=== PATIENT | female | born 1990 | race Two or more races ===

== ENCOUNTER 2020-06-02 16:30 | Day surgery (SDC) | payer MEDICAID ==
[~2020-06-02] VITALS: Ht 162.6 cm; Wt 73.0 kg
--- NOTE | 2020-06-02 18:07 | NUR ---
PT IN GOWN IN [facility]. PT EDUCATED ON ER PROCESS AND POC AND VERBALIZES UNDERSTANDING. CALL LIGHT IS WITHIN REACH AT THIS TIME. PT AMBULATES TO RESTROOM WITH STEADY GAIT TO VOID FOR UA. LAB AT BS TO DRAW PT BLOOD AT THIS TIME.
[2020-06-02 18:14] LABS: MEAN CORPUSCULAR HEMOGLOBIN 29.1 pg (27.0-34.8); MEAN CORPUSCULAR HGB CONC 33.5 g/dL (32.4-35.8); PLATELET COUNT 338 x10^3/uL (130-400); RED BLOOD COUNT 4.65 x10^6/uL (3.82-5.3); RED CELL DISTRIBUTION WIDTH 16.8 % (9.6-15.2)
[2020-06-02] MEDS ORDERED: SODIUM CHLORIDE 0.9% 1,000 ML IV ONE (18:20)
[2020-06-02 18:27] LABS: ALBUMIN 4.4 g/dL (3.4-5.0); ANION GAP 12 mmol/L (5-15); CHLORIDE 109 mmol/L (98-107); CREATININE 0.91 mg/dL (0.55-1.02)
[2020-06-02] MEDS ORDERED: ONDANSETRON 2MG/ML, 2ML ONE ×2 (18:28→22:43)
[2020-06-02] MEDS ORDERED: MORPHINE SULFATE 4 MG/ML, 1ML ONE ×2 (18:28→20:21)
[2020-06-02] MEDS ORDERED: ONDANSETRON 2MG/ML, 2ML IVPush ONE (18:30)
[2020-06-02] MEDS ORDERED: SODIUM CHLORIDE FLUSH 10ML SYR IVF ONE (18:30)
[2020-06-02] MEDS: MORPHINE SULFATE 4 MG/ML, 1ML IVPush PRN ×2 (18:31→20:23)
--- NOTE | 2020-06-02 18:33 | NUR ---
PT MEDICATED FOR NAUSEA AND PAIN PER MAR.IV FLUIDS INITIATED. PT TO CT VIA [facility] AT THIS TIME.
--- NOTE | 2020-06-02 18:44 | NUR ---
PT URINE COLLECTED AND TUBED TO LAB AT THIS TIME.
[2020-06-02 18:59] LABS: BASOPHILS # (AUTO) 0.07 x10^3/uL (0-0.1); BASOPHILS % (AUTO) 0 % (0-1); EOSINOPHILS % (AUTO) 0 % (1-7); LYMPHOCYTES % (AUTO) 3 % (22-44); MONOCYTES # (AUTO) 0.68 x10^3/uL (0.2-0.8); MONOCYTES % (AUTO) 3 % (2-9); NEUTROPHILS # (AUTO) 22.51 x10^3/uL (1.8-6.8); NEUTROPHILS % (AUTO) 94 % (42-75)
[2020-06-02 19:00] LABS: MD SCAN
[2020-06-02 19:08] LABS: MICROSCOPIC INDICATED
--- NOTE | 2020-06-02 19:49 | NUR ---
PT TO CT VIA [facility] AT THIS TIME.
[2020-06-02] MEDS ORDERED: OMNIPAQUE 350 MG/ML, 100ML BOTTLE ONE (19:59)
--- NOTE | 2020-06-02 20:04 | NUR ---
ADOLFO RN, AT TO COLLECT STRAIGHT CATH SAMPLE FOR THIS RN. ADOLFO WALKED SAMPLE TO LAB AT THIS TIME FOR PROCESSING.
[2020-06-02 20:24] LABS: MICROSCOPIC INDICATED
[2020-06-02] MEDS ORDERED: METRONIDAZOLE PMX 500MG/100ML 100 ML ONE (20:26)
[2020-06-02] MEDS ORDERED: CEFOTETAN PMX 1GM/50ML 50 ML IV ONE (20:30)
[2020-06-02] MEDS ORDERED: METRONIDAZOLE PMX 500MG/100ML 100 ML IV ONE (20:30)
--- NOTE | 2020-06-02 20:44 | NUR ---
REPORT OF PT TO NEHEMIAH CHOI IN OR. ALL QUESTIONS ANSWERED. PT INSTRUCTED TO REMOVE ALL PERSONAL ITEMS AND JEWELRY PRIOR TO SURGERY. PT COMPLIES WITH THIS RN'S REQUESTS. PT QUESTIONS ANSWERED.
[2020-06-02] MEDS ORDERED: FENTANYL PF 100 MCG/2ML ONE ×2 (21:21→22:59)
[2020-06-02] MEDS ORDERED: MIDAZOLAM 1 MG/ML, 2ML ONE (21:21)
[2020-06-02] MEDS ORDERED: BUPIVACAINE/EPI 0.5% 1:200K ONE (21:58)
[2020-06-02] MEDS ORDERED: KETOROLAC 30 MG/1 ML ONE (22:08)
[2020-06-02] MEDS ORDERED: SUGAMMADEX 200 MG/2 ML IVPush ONE (22:08)
[2020-06-02] MEDS ORDERED: CEFTRIAXONE 1,000 MG ONE (22:21)
[2020-06-02] MEDS ORDERED: ACETAMINOPHEN 325 MG TABLET PO PRN (22:30)
[2020-06-02] MEDS ORDERED: MEPERIDINE/PF 25MG/0.5ML IVPush PRN (22:30)
[2020-06-02] MEDS ORDERED: ALBUTEROL SULFATE 2.5 MG/3 ML NPPB PRN (22:30)
[2020-06-02] MEDS ORDERED: HYDROmorphone 1 MG/ML, 1ML INJ IVPush PRN (22:30)
[2020-06-02] MEDS ORDERED: LABETALOL 5MG/ML, 20ML IV PRN (22:30)
[2020-06-02] MEDS ORDERED: DIPHENHYDRAMINE 50 MG/ML, 1ML IVPush PRN (22:30)
[2020-06-02] MEDS ORDERED: LORazepam 2 MG/ML, 1ML IVPush PRN (22:30)
[2020-06-02] MEDS ORDERED: OXYcodone 5 MG/5 ML ORAL.SOL UDC PO PRN (22:30)
[2020-06-02] MEDS ORDERED: hydrALAzine 20 MG/ML, 1ML IV PRN (22:30)
[2020-06-02] MEDS ORDERED: BUPIVACAINE/EPI 0.5% 1:200K INFIL ONE (22:36)
[2020-06-02] MEDS ORDERED: GLYCOPYRROLATE 0.2MG/1ML, 5ML ONE (22:43)
[2020-06-02] MEDS ORDERED: SUCCINYLCHOLINE 20 MG/ML, 10ML ONE (22:43)
[2020-06-02] MEDS ORDERED: PROPOFOL 10 MG/ML, 20ML ONE (22:43)
[2020-06-02] MEDS ORDERED: ROCURONIUM 10MG/ML,5ML ONE (22:43)
[2020-06-02] MEDS ORDERED: DEXAMETHASONE 4 MG/ML, 1ML ONE (22:43)
[2020-06-02] MEDS ORDERED: NEOSTIGMINE 1 MG/ML, 10ML ONE (22:43)
[2020-06-02] MEDS ORDERED: PROMETHAZINE 25 MG/ML, 1ML ONE (22:59)
[2020-06-02] MEDS: FENTANYL PF 100 MCG/2ML IV PRN ×3 (23:00→23:20)
[2020-06-02] MEDS ORDERED: OXYcodone 5 MG/5 ML ORAL.SOL UDC ONE (23:22)
[2020-06-02] MEDS ORDERED: PROMETHAZINE 25 MG/ML, 1ML IVPush PRN (23:30)
[2020-06-03] MEDS ORDERED: ONDA8TAB9 PO (00:18)
[2020-06-03] MEDS ORDERED: OXYC5TAB2 PO (00:18)
[2020-06-03] MEDS ORDERED: DIPHENHYDRAMINE 50 MG/ML, 1ML IVPush PRN (01:00)
[2020-06-03] MEDS ORDERED: KETOROLAC 30 MG/1 ML IV PRN (01:00)
[2020-06-03] MEDS ORDERED: OXYcodone 5 MG/5 ML ORAL.SOL UDC PO PRN (01:00)
[2020-06-03] MEDS ORDERED: LACTATED RINGERS 1,000 ML IV SCH (01:00)
[2020-06-03] MEDS ORDERED: ONDANSETRON 2MG/ML, 2ML IVPush PRN (01:00)
[2020-06-03 03:43] VITALS: BP 97/59
[2020-06-03 06:45] VITALS: BP 106/66
[2020-06-03] MEDS ORDERED: PROMETHAZINE 25 MG/ML, 1ML IM PRN (09:00)
== END 2020-06-03 08:43 | disposition home or self-care (01) ==
LOC: ED 19:28 → EDIP 20:42 → UNDOADMIN 20:42 → OUT 22:50 → EDIP 06-03 00:06 → 4NE 06-03 00:06 → OUT 06-03 08:43 → UNDODISIN 06-03 08:43
PROVIDERS: ATTEND Emergency Medicine
DX: K35.890 Other acute appendicitis without perforation or gangrene (principal); Z88.1 Allergy status to other antibiotic agents; Z88.8 Allergy status to other drugs, medicaments and biological substances; Z79.899 Other long term (current) drug therapy
CPT/HCPCS: 36415; 44970; 74177; 76857; 80048; 81001; 82040; 84703; 85025; 87077; 87086; 87186; 87635; 88304; 96374; 96375; 99285; J0330; J0696; J1100; J1885; J2250; J2270; J2405; J2550; J2704; J2710; J3010; J7030; Q9967